=== PATIENT | female | born 1970 | race American Indian/Alaskan Native ===

== ENCOUNTER 2020-03-10 08:02 | Day surgery (SDC) | payer OTHER ==
[2020-03-08 10:59] LABS: Hematocrit 31.6 % (30.3-42.9); Hemoglobin 9.7 gm/dl (10.1-14.3); Mean Corpuscular HGB Conc 31 % (30-34); Platelet Count 410 K/mm3 (140-440); Red Blood Count 4.87 M/mm3 (3.65-5.03)
[2020-03-08 11:02] LABS: Mean Corpuscular Volume 65 fl (79-97); Red Cell Distribution Width 29.2 % (13.2-15.2)
--- NOTE | 2020-03-08 11:08 | Anesthesia Consultation ---
Anesthesia Consult and Med Hx Date of service: 03/10/20 - Airway Anesthetic Teeth Evaluation: Good ROM Head & Neck: Adequate Mental/Hyoid Distance: Adequate Mallampati Class: Class I Intubation Access Assessment: Good - Pulmonary Exam CTA: Yes - Cardiac Exam Cardiac Exam: RRR - Pre-Operative Health Status ASA Pre-Surgery Classification: ASA2 Proposed Anesthetic Plan: General Nerve Block: TAP - Pulmonary Hx Smoking: Yes (quit 2 yrs ago) Hx Respiratory Symptoms: No - Cardiovascular System Hx Hypertension: No Hx Heart Attack/AMI: No Hx Percutaneous Transluminal Coronary Angioplasty (PTCA): No - Central Nervous System CVA: No - Gastrointestinal Hx Gastroesophageal Reflux Disease: No - Endocrine Hx Renal Disease: No Hx Liver Disease: No Hx Non-Insulin Dependent Diabetes: Yes Hx Thyroid Disease: No - Hematic Hx Anemia: Yes (no hx blood transfusion) - Other Systems Hx Alcohol Use: Yes (Occas) Hx Obesity: Yes (BMI 31) - Additional Comments Anesthesia Medical History Comments: No hx anesthetic complications.
[2020-03-08 11:16] LABS: Blood Urea Nitrogen 8 mg/dL (7-17); Calcium 9.3 mg/dL (8.4-10.2); Hemolysis Index 1
[2020-03-08 11:17] LABS: BUN/Creatinine Ratio 13
[2020-03-08 12:07] LABS: Total Cells Counted 100
[2020-03-08 12:08] LABS: Anisocytosis 3+; Hypochromasia 2+; Macrocytosis Few; Platelet Estimate Consistent w Auto
--- NOTE | 2020-03-10 07:22 | History and Physical Report ---
History of Present Illness Date of examination: 03/10/20 Date of admission: 03/10/2020 Chief complaint: Symptomatic uterine fibroids History of present illness: 49-year-old -0-0-4 with a history of symptomatic uterine fibroids. The patient had a pelvic ultrasound that demonstrated a dominant leiomyoma measuring 7.0 cm with an overall uterine length of 11.5 cm. The patient reports pelvic pain and heavy vaginal bleeding during her menses. She is elected to undergo definitive surgical management. Past History Past Medical History: hypertension, diabetes Past Surgical History: other (Tubal ligation) Social history: single - Obstetrical History : 4 Para: 4 Hx # Term Pregnancies: 4 Number of Pregnancies: 0 Spontaneous Abortions: 0 Induced : 0 Number of Living Children: 4 Medications and Allergies Allergies Allergy/AdvReac Type Severity Reaction Status Date / Time hydrocodone [From Vicodin] Allergy Itching Verified 03/04/20 08:14 Home Medications Medication Instructions Recorded Confirmed Last Taken Type metFORMIN [Glucophage] 1,000 mg PO BID 03/04/20 03/04/20 Unknown History Active Meds: Active Medications Acetaminophen (Acetaminophen 500 Mg Tab) 1,000 mg PO PREOP OUSMANE Stop: 03/10/20 21:00 Celecoxib (Celecoxib 200 Mg Cap) 200 mg PO PREOP NR Stop: 03/10/20 21:00 Fentanyl (Fentanyl 100 Mcg/2 Ml Inj) 100 mcg IV ONCE PRN PRN Reason: sedation for nerve block Stop: 03/10/20 21:00 Gabapentin (Gabapentin 300 Mg Cap) 300 mg PO PREOP NR Stop: 03/10/20 21:00 Lactated Ringer's (Lactated Ringers) 1,000 mls @ 100 mls/hr IV DIRECT OUSMANE Stop: 03/10/20 23:59 Midazolam HCl (Midazolam 2 Mg/2 Ml Inj) 2 mg IV PREOP NR Stop: 03/10/20 21:00 Review of Systems All systems: negative Genitourinary: vaginal bleeding, pelvic pain - Vital Signs Vital signs: Vital Signs Temp Pulse Resp BP Pulse Ox 98.9 F 84 18 131/77 100 03/08/20 10:40 03/08/20 10:40 03/08/20 10:40 03/08/20 10:40 03/08/20 10:40 Temp Pulse Resp BP Pulse Ox 98.9 F 84 18 131/77 100 03/08/20 10:40 03/08/20 10:40 03/08/20 10:40 03/08/20 10:40 03/08/20 10:40 - Physical Exam Breasts: Positive: deferred Cardiovascular: Regular rate Lungs: Positive: Clear to auscultation Abdomen: Positive: normal appearance Results Result Diagrams: 03/08/20 10:45 03/08/20 10:45 All other labs normal. Assessment and Plan - Patient Problems (1) Uterine fibroid Status: Acute Plan to address problem: Schedule for robotic hysterectomy (2) Menorrhagia Status: Acute (3) Dysmenorrhea Status: Acute
[~2020-03-10 08:02] MED LIST: ACETAMINOPHEN 500 MG TAB PO SCH; CELECOXIB 200 MG CAP PO NR; GABAPENTIN 300 MG CAP PO NR; LACTATED RINGERS 1,000 ML IV SCH; MIDAZOLAM 2 MG/2 ML INJ IV NR; ceFAZolin/Water 2 GM/20 ML 2 GM/20 ML SYRINGE IV NR; fentaNYL 100 MCG/2 ML INJ IV PRN
--- NOTE | 2020-03-10 08:30 | Anesthesia Day of Surgery ---
Anesthesia Day of Surgery - Day of Surgery Patient Examined: Yes Patient H&P Reviewed: Yes Patient is NPO: Yes
[2020-03-10] MEDS ORDERED: HYDROmorphone 1 MG/1 ML INJ IV PRN (08:31)
[2020-03-10] MEDS ORDERED: ONDANSETRON 4 MG/2 ML INJ IV PRN (08:31)
[2020-03-10] MEDS ORDERED: INSULIN REGULAR, HUMAN 100 UNIT/ML 3ML VIAL IV ONE (08:47)
[2020-03-10] MEDS ORDERED: dexAMETHasone 4 MG/ML VIAL ONE ×2 (08:49→09:18)
[2020-03-10] MEDS ORDERED: SODIUM CHLORIDE P/F VIAL 10 ML 30 ML ONE (08:49)
[2020-03-10] MEDS ORDERED: BUPIVACAINE-EPINEPHRINE/PF 0.5%-1:200,000 (30 ML) VIAL INFILTRATI ONE (08:49)
[2020-03-10] MEDS ORDERED: INSULIN REGULAR, HUMAN 100 UNITS/1 ML ONE (08:55)
--- NOTE | 2020-03-10 09:34 | Progress Note ---
Regional Anesthesia Block - Regional Anesthesia Block Start Time: :25 Stop Time: : Performed By:: NATASHA JHAVERI Procedure: Bilateral Ultrasound Guided TAP Block Pt IDd, consent obtained, time out performed. Pt on monitor + O2 via NC, VS stable, sedation given per pre-op RN. Sterile prep. Landmarks identified with ultrasound. [1.5]cc skin wheel with 1% lidocaine. Needle advance in plane with ultrasound. [30]cc [0.25]% bupivacaine [w/ epi] + [4]mg decadron + [100]mcg clonidine injected incrementally with negative aspiration. Procedure repeated on opposite side. Pt tolerated procedure well, no immediate complications noted.
[2020-03-10] MEDS ORDERED: NEOMY 40 MG/POLYMYXIN B 200,000 UNITS/ML (GU) AMPULE IR ONE ×2 (09:45→11:21)
[2020-03-10] MEDS ORDERED: HYDROmorphone 1 MG/1 ML INJ ONE (09:47)
[2020-03-10] MEDS ORDERED: ONDANSETRON 4 MG/2 ML INJ ONE (09:47)
[2020-03-10] MEDS ORDERED: dexAMETHasone 20 MG/5 ML VIAL ONE (09:47)
[2020-03-10] MEDS ORDERED: LIDOCAINE MPF (2%) 20 MG/1 ML VIAL 5 ML ONE (09:47)
[2020-03-10] MEDS ORDERED: ROCURONIUM 50 MG/5 ML INJ IV ONE ×2 (09:47→11:24)
[2020-03-10] MEDS ORDERED: propofoL 200 MG/20 ML VIAL IV ONE (09:47)
[2020-03-10] MEDS ORDERED: SODIUM CHLORIDE 0.9% IRR 1,500 ML BOTTLE IR ONE (11:21)
[2020-03-10] MEDS ORDERED: SODIUM CHLORIDE 0.9% IRRIG SOLN 2000 ML IR ONE (11:21)
[2020-03-10] MEDS ORDERED: LACTATED RINGERS 1,000 ML ONE (11:24)
[2020-03-10] MEDS ORDERED: PHENYLEPHRINE/NS 1,000 MCG/10 ML SYRINGE (OR USE) IV ONE (12:17)
[2020-03-10] MEDS ORDERED: GLYCOPYRROLATE 0.4 MG/2 ML INJ ONE (12:21)
[2020-03-10] MEDS ORDERED: NEOSTIGMINE 10MG/10 ML INJ MDV ONE (12:21)
--- NOTE | 2020-03-10 12:29 | Operative Report ---
Operative Report Operative Report: Date of surgery: March 10, 2020 Preoperative diagnoses: Symptomatic uterine fibroids; dysmenorrhea; menorrhagia Postoperative diagnoses: Same as above Procedure: Robotic hysterectomy; bilateral salpingectomy Surgeon: Christa Severino M.D. Sales Receptionist: Nia Zaragoza Anesthesia: Gen. endotracheal anesthesia Estimated blood loss: 50 mL Pathology: Uterus, cervix, leiomyomas, bilateral tubes Indication: 49-year-old -0-0-4 with a history of symptomatic uterine fibroids. The patient elected to undergo definitive surgical management. Procedure: The patient was taken to the operating room and given general endotracheal anesthesia without complication after a time out was performed confirming the surgery and identity of the patient. She was prepped and draped in a normal sterile fashion. A bivalve speculum was placed in the patient's vagina and a single-tooth tenaculum placed on the anterior lip of the cervix. The uterus was sounded with the uterine sound. A stay suture with 0-vicryl was placed at 12 o'clock on the anterior cervix. A [employer] uterine manipulator was placed in the bivalve speculum was then removed. A warm laparotomy sponge was placed in the vagina. Attention was then turned to the patient's abdomen where a 12millimeter supra umbilical skin incision was then made. A Veress needle was placed and peritoneal entry was verified water-filled syringe. Insufflation of the peritoneal cavity was performed with CO2 gas. The 12 mm trocar was then placed under direct visualization. An additional 8 mm robotic trocar was placed on the patient's left and right lateral side just opposite of the supraumbilical trocar. An additional 5 mm right lateral trocar was then placed as the accessory port. The supraumbilical 12 mm trocar site was closed with the Lukas Shanks device and 0-vicryl suture. The patient was then placed in steep Trendelenburg. The da [employer]rell robot was then engaged. A fenestrated forcep was placed in arm 2 and a vessel sealer was placed in arm 1. General survey revealed a markedly enlarged fibroid uterus with multiple leiomyomas. The ovaries were normal in appearance. The surgeon then transferred to the surgical console. The mesosalpinx was then isolated on the right. The vessel sealer was used to coagulate the mesosalpinx which was then transected. The tube was transected from the ovary. The tubo-ovarian ligament was then coagulated and transected. The round ligament was then coagulated and transected also. The vesicouterine peritoneum was then entered from the patient's right side. The uterine vessels were then coagulated with the vessel sealer. The vessels were then transected . Attention was then turned to the patient's left side where the tubo-ovarian ligament and mesosalpinx were again isolated coagulated and transected. The vesical peritoneum was then entered from the left and joined in the midline. Peritoneum was reflected off of the lower uterine segment. Uterine vessels were then coagulated and then transected. The blood supply to the uterus was adequately contained, a posterior colpotomy was made. The V care ring was visualized. Posterior colpotomy was created with the monopolar scissors. The incision was continued circumferentially until anterior colpotomy was made. The cervix and uterus were amputated from the vaginal cuff. The uterus had to be bivalved and the leiomyomas removed in order to facilitate delivery through the vagina. The uterus was then removed along with the leiomyomas and tubes bilaterally through the vagina and a warm laparotomy sponge was placed and maintain the pneumoperitoneum. The vaginal cuff was then closed in a running fashion with V lock suture. Irrigation of the pelvis was performed. Hemoblast was applied to the incision. The [employer] robot was undocked. The trocars were removed and the insuffliation was released. The skin was then reapproximated with 4-0 Monocryl. The tissue was sent to pathology which included the cervix, leiomyomas, bilateral tubes and uterus. The patient was then successfully extubated. She was then taken to the recovery room in stable condition. All sponge laps and needle counts were correct x2.
--- NOTE | 2020-03-10 16:54 | Post Anesthesia Evaluation ---
- Post Anesthesia Evaluation Patient Participated: Yes Airway Patent: Yes Stable Respiratory Function: Yes Nausea/Vomiting: No Temp > 96.8F: Yes Pain Manageable: Yes Adequeate Hydration: Yes Anesthesia Complications: No
[2020-03-10 19:29] VITALS: BP 128/68
== END 2020-03-10 08:03 | disposition home or self-care (01) ==
LOC: OR 08:02
PROVIDERS: ATTEND Obstetrics & Gynecology
DX: D25.9 Leiomyoma of uterus, unspecified (principal); N94.6 Dysmenorrhea, unspecified; N92.0 Excessive and frequent menstruation with regular cycle; N83.8 Other noninflammatory disorders of ovary, fallopian tube and broad ligament; N88.8 Other specified noninflammatory disorders of cervix uteri; I10 Essential (primary) hypertension; E11.9 Type 2 diabetes mellitus without complications; E66.9 Obesity, unspecified; Z98.51 Tubal ligation status; Z72.89 Other problems related to lifestyle; Z88.8 Allergy status to other drugs, medicaments and biological substances; Z79.899 Other long term (current) drug therapy; Z87.891 Personal history of nicotine dependence; Z79.84 Long term (current) use of oral hypoglycemic drugs; Z98.890 Other specified postprocedural states; Z68.31 Body mass index [BMI] 31.0-31.9, adult
CPT/HCPCS: 36415; 58554; 80048; 82962; 84703; 85007; 85025; 86850; 86900; 86901; 88307; A4217; J0690; J1100; J1170; J2250; J2370; J2405; J2704; J2710; J3010; J7120; S2900; 64450; J1815